=== PATIENT | female | born 1995 | race Two or more races ===

== ENCOUNTER 2016-08-13 12:53 | Emergency (ER) | payer MEDICAID ==
[2016-08-13] MEDS ORDERED: NS 1,000 ML IV ONE ×2 (14:10→15:24)
[2016-08-13 14:27] LABS: HEMATOCRIT 37.1 % (38.0-47.0); HEMOGLOBIN 13.4 g/dL (12.6-16.3); MEAN CELL HEMOGLOBIN 31.5 pg (27.9-34.1); MEAN CELL HEMOGLOBIN CONCENTR. 36.1 g/dL (32.4-36.7); MEAN CELL VOLUME 87.1 fL (81.5-99.8); RED BLOOD CELL COUNT 4.26 10^6/uL (4.18-5.33); RED CELL DISTRIBUTION WIDTH 11.7 % (11.5-15.2)
[2016-08-13 14:40] LABS: COLOR YELLOW; LEUKOCYTE ESTERASE,URINE 1+ (NEGATIVE); NITRITE,URINE POSITIVE (NEGATIVE)
[2016-08-13 14:59] LABS: RBC,URINE 25-50 /hpf (0-3); WBC,URINE >182 /hpf (0-3)
[2016-08-13 15:00] LABS: BACTERIA TRACE /hpf (NONE SEEN)
[2016-08-13 15:02] LABS: ALANINE AMINOTRANSFERASE 30 IU/L (9-52); ALBUMIN 3.4 g/dL (3.5-5.0); ALKALINE PHOSPHATASE 73 IU/L (38-126); ANION GAP 15 mEq/L (8-16); ASPARTATE AMINOTRANSFERASE 17 IU/L (14-46); BILIRUBIN,TOTAL 0.5 mg/dL (0.1-1.4); CALCIUM 8.5 mg/dL (8.5-10.4); CARBON DIOXIDE 24 mEq/l (22-31); CHLORIDE 99 mEq/L (97-110); CREATININE 0.6 mg/dL (0.6-1.0); GLOMERULAR FILTRATION RATE > 60; GLUCOSE 105 mg/dL (70-100); POTASSIUM 3.7 mEq/L (3.5-5.2); SODIUM 138 mEq/L (134-144); TOTAL PROTEIN 6.8 g/dL (6.3-8.2)
[2016-08-13] MEDS ORDERED: ACETAMINOPHEN 325 MG TAB PO ONE (15:03)
[2016-08-13] MEDS ORDERED: KETOROLAC 15 MG/1 ML SDV IVP ONE (15:03)
[2016-08-13 15:08] VITALS: O2SAT 95
--- NOTE | 2016-08-13 15:51 | UCPHY ---
H & P Patient Type: Established Chief Complaint Nursing Narrative: RLQ ABD PAIN SINCE LAST SATURDAY, NAUSEA, DENIES URINARY S/SX. FEVER HIGH OF 100F Time Seen by Provider: 08/13/16 14:11 HPI/ROS: This patient reports back pain that started 6 days ago in the right flank. It gradually started radiating to her belly. 4 days prior to arrival she developed associated fevers. She has never had these symptoms before but came in today due to increasing flank pain-7/10 intensity. She also developed some nausea today. She notes no exacerbating or alleviating factors. She did not try any medications at home. ROS: Fatigue in addition to the fever. No other constitutional symptoms. HEENT: No recent URI complaints. Pulmonary: No shortness of breath or cough. She does notice with a deep breath she has slightly increased flank pain. Cardiovascular: No complaints GI: She reports some suprapubic discomfort of moderate intensity with her symptoms. : She did notice dysuria. No urgency noted. No vaginal discharge. Last menstrual period was normal timing 1 month ago. Integumentary: No rash. 10 point ROS is otherwise negative. Source: Patient Exam Limitations: No limitations - Personal History LMP (Females 10-55): Over 28 Days Ago Tetanus Vaccine Date: < 10 years - Medical/Surgical History Hx Asthma: No Hx Chronic Respiratory Disease: No Hx Diabetes: No Hx Cardiac Disease: No Hx Renal Disease: No Hx Cirrhosis: No Hx Alcoholism: No Hx HIV/AIDS: No Hx Splenectomy or Spleen Trauma: No Other PMH: med hx-anxiety. surg-none - Family History Significant Family History: No pertinent family hx - Social History Smoking Status: Never smoked Alcohol Use: None Drug Use: None - Physical Exam Exam: Vitals notable for fever and tachycardia General Appearance: Alert, no distress. Eyes: Pupils equal and round no pallor or injection. ENT, Mouth: Mucous membranes moist. Respiratory: There are no retractions, lungs are clear to auscultation. Cardiovascular: Tachycardic Gastrointestinal: Normoactive bowel sounds with suprapubic tenderness. She also has minimal right lower quadrant tenderness but this is less than a suprapubic tenderness. No guarding or rebound. Rovsing's is negative. Back: Positive right CVA tenderness that reproduces her symptoms. Neurological: Alert with no deficits. Skin: Warm and dry, no rashes. Musculoskeletal: Neck is supple nontender. Extremities are symmetrical, full range of motion. Psychiatric: Mood and affect normal DIFFERENTIAL DIAGNOSIS: After history and physical exam differential diagnosis was considered for pyelonephritis, perinephric abscess, appendicitis, viral syndrome with back strain and cystitis Constitutional: Initial Vital Signs Temperature (C) 39.4 C H 08/13/16 13:45 Heart Rate 123 H 08/13/16 13:45 Respiratory Rate 18 08/13/16 13:45 Blood Pressure 122/77 H 08/13/16 13:45 O2 Sat (%) 95 08/13/16 13:45 O2 Delivery Mode Room Air Allergies/Adverse Reactions: No Known Allergies Allergy (Verified 08/13/16 14:09) Home Medications: Medication Instructions Recorded Bcp 08/13/16 Cephalexin [Keflex (*)] 500 mg PO QID #28 cap 08/13/16 Ondansetron Odt [Zofran Odt] 4 - 8 mg PO Q4PRN PRN #4 tab 08/13/16 Medical Decision Making ED Course/Re-evaluation: IV normal saline bolus Toradol and Tylenol with defervesced since to a febrile state. Tachycardia resolved Patient felt some improvement in terms of reduction of pain. Counseled regarding pyelonephritis. We ruled out . Her belly exam is benign at this time and I think that her suprapubic tenderness is attributable to cystitis associated with pyelonephritis. I counseled regarding this. She understands the need to go to the emergency department return here if she has any worsening of her symptoms despite the treatment plan. - Data Points Laboratory Results: Laboratory Results 08/13/16 14:13 08/13/16 14:05 08/13/16 08/13/16 08/13/16 14:13 14:05 14:05 WBC 11.63 10^3/uL H 10^3/uL (3.80-9.50) RBC 4.26 10^6/uL 10^6/uL (4.18-5.33) Hgb 13.4 g/dL g/dL (12.6-16.3) Hct 37.1 % L % (38.0-47.0) MCV 87.1 fL fL (81.5-99.8) MCH 31.5 pg pg (27.9-34.1) MCHC 36.1 g/dL g/dL (32.4-36.7) RDW 11.7 % % (11.5-15.2) Plt Count 209 10^3/uL 10^3/uL (150-400) Sodium Potassium Chloride Carbon Dioxide Anion Gap BUN Creatinine Estimated GFR Glucose Calcium Total Bilirubin AST ALT Alkaline Phosphatase Total Protein Albumin Beta HCG, Qual NEGATIVE Urine Color YELLOW Urine Appearance CLOUDY Urine pH 6.0 (5.0-7.5) Ur Specific [place] 1.010 (1.002-1.030) Urine Protein 1+ H (NEGATIVE) Urine Ketones NEGATIVE (NEGATIVE) Urine Blood 2+ H (NEGATIVE) Urine Nitrate POSITIVE H (NEGATIVE) Urine Bilirubin NEGATIVE (NEGATIVE) Urine Urobilinogen 0.2 EU EU (0.2-1.0) Ur Leukocyte Esterase 1+ H (NEGATIVE) Urine RBC 25-50 /hpf H /hpf (0-3) Urine WBC >182 /hpf H /hpf (0-3) Ur Epithelial Cells TRACE /lpf /lpf (NONE-1+) Urine Bacteria TRACE /hpf H /hpf (NONE SEEN) Ur Culture Indicated? INDICATED H (NI) Urine Glucose NEGATIVE (NEGATIVE) 08/13/16 14:05 WBC RBC Hgb Hct MCV MCH MCHC RDW Plt Count Sodium 138 mEq/L mEq/L (134-144) Potassium 3.7 mEq/L mEq/L (3.5-5.2) Chloride 99 mEq/L mEq/L (97-110) Carbon Dioxide 24 mEq/l mEq/l (22-31) Anion Gap 15 mEq/L mEq/L (8-16) BUN 9 mg/dL mg/dL (7-23) Creatinine 0.6 mg/dL mg/dL (0.6-1.0) Estimated GFR > 60 Glucose 105 mg/dL H mg/dL (70-100) Calcium 8.5 mg/dL mg/dL (8.5-10.4) Total Bilirubin 0.5 mg/dL mg/dL (0.1-1.4) AST 17 IU/L IU/L (14-46) ALT 30 IU/L IU/L (9-52) Alkaline Phosphatase 73 IU/L IU/L (38-126) Total Protein 6.8 g/dL g/dL (6.3-8.2) Albumin 3.4 g/dL L g/dL (3.5-5.0) Beta HCG, Qual Urine Color Urine Appearance Urine pH Ur Specific [place] Urine Protein Urine Ketones Urine Blood Urine Nitrate Urine Bilirubin Urine Urobilinogen Ur Leukocyte Esterase Urine RBC Urine WBC Ur Epithelial Cells Urine Bacteria Ur Culture Indicated? Urine Glucose Medications Given: Discontinued Medications Acetaminophen (Tylenol) 975 mg PO EDNOW ONE Stop: 08/13/16 15:04 Last Admin: 08/13/16 15:28 Dose: 975 mg Sodium Chloride (Ns) 1,000 mls @ 0 mls/hr IV ONCE ONE PRN Reason: Wide Open Stop: 08/13/16 14:11 Last Admin: 08/13/16 14:21 Dose: 1,000 mls Ceftriaxone Sodium 1 gm/ (Sodium Chloride) 100 mls @ 200 mls/hr IV EDNOW ONE PRN Reason: Protocol Stop: 08/13/16 15:37 Last Admin: 08/13/16 15:27 Dose: 100 mls Ketorolac Tromethamine (Toradol) 15 mg IVP EDNOW ONE Stop: 08/13/16 15:04 Last Admin: 08/13/16 15:25 Dose: 15 mg Departure - Departure Disposition: Home, Routine, Self-Care Clinical Impression: Pyelonephritis Condition: Good Instructions: Urinary Tract Infection in Women (ED) Additional Instructions: Diagnosis: Pyelonephritis Plan: Drink plenty fluids Keflex antibiotic -start this tomorrow is received IV antibiotic today. [id number] mg per 6 hours if needed for pain Tylenol in addition if needed for pain. Zofran if needed for nausea or vomiting. Return here to the emergency department if he has any significant worsening of her symptoms with the treatment plan Referrals: NONE *PRIMARY CARE P,. [Primary Care Provider] - As per Instructions - PQRS PQRS Measurement: NA
[2016-08-13 16:08] VITALS: RESP 16; TEMP 99
[2016-08-13 16:31] VITALS: BP 122/75; PULSE 100
== END 2016-08-13 16:25 | disposition home or self-care (01) ==
LOC: CED 12:53
DX: N12 Tubulo-interstitial nephritis, not specified as acute or chronic (principal)
CPT/HCPCS: 80053-PO; 81003-PO; 81015-PO; 84703-PO; 85027-PO; 96361-PO; 96365-PO; 96375-PO; 99215-PO; G0463-PO; J0696; J1885

== ENCOUNTER 2018-06-08 12:59 | Emergency (ER) | payer MEDICAID ==
[2018-06-08] MEDS ORDERED: ACETAMINOPHEN 325 MG TAB PO ONE (13:13)
[2018-06-08] MEDS ORDERED: IBUPROFEN 600 MG TAB PO ONE (13:13)
--- NOTE | 2018-06-08 13:29 | EDPHY ---
H & P Stated Complaint: fever, cough and congestion started yesterday Time Seen by Provider: 06/08/18 13:07 HPI/ROS: CHIEF COMPLAINT: Fever, cough, sore throat HISTORY OF PRESENT ILLNESS: This is a generally healthy healthy 23-year-old female who presents with fever, sore throat, some upper chest discomfort and cough. This all began yesterday. She took ibuprofen yesterday afternoon, nothing since. Her appetite is diminished but she has been able to drink liquids. She has mild headache and myalgias. She has not had a flu vaccination. REVIEW OF SYSTEMS: A ten system review of systems was performed and is negative with the exception of the items mentioned in the HPI. Past medical history: Negative Past surgical history: Negative Social history: She works in an medical writer's office. She does not use tobacco products. General Appearance: Alert. Vital signs reviewed. Heart rate 139, temperature 39.2 degrees at triage. Eyes: Pupils equal and round, no conjunctival injection, no discharge. Anicteric. ENT, Mouth: Mucous membranes are moist, mild oropharyngeal erythema without exudates or edema. Neck: No lymphadenopathy, supple. No meningeal signs. Respiratory: Lungs are clear to auscultation; no wheezes, rales, or rhonchi. Cardiovascular: Tachycardic no murmur, rub, or gallop. Gastrointestinal: Abdomen is soft and nontender, no masses or organomegaly, bowel sounds normal. Skin: Warm and dry, no rashes on exposed skin, normal color. Back: Nontender to palpation over the thoracolumbar spine. No CVAT. Extremities: No lower extremity edema, no calf tenderness or swelling. Neurological: Alert and oriented. Moving all four extremities easily and equally. Psychiatric: Normal affect. - Personal History LMP (Females 10-55): Now Tetanus Vaccine Date: < 10 years - Medical/Surgical History Hx Asthma: No Hx Chronic Respiratory Disease: No Hx Diabetes: No Hx Cardiac Disease: No Hx Renal Disease: No Hx Cirrhosis: No Hx Alcoholism: No Hx HIV/AIDS: No Hx Splenectomy or Spleen Trauma: No Other PMH: med hx-anxiety. surg-none - Social History Smoking Status: Never smoked Constitutional: Initial Vital Signs Temperature (C) 39.2 C H 06/08/18 13:06 Heart Rate 139 H 06/08/18 13:06 Respiratory Rate 18 06/08/18 13:06 Blood Pressure 129/88 H 06/08/18 13:06 O2 Sat (%) 94 06/08/18 13:06 O2 Delivery Mode Room Air Allergies/Adverse Reactions: No Known Allergies Allergy (Verified 06/08/18 13:06) Home Medications: Medication Instructions Recorded Bcp 08/13/16 Benzonatate [Tessalon Pearles (RX)] 100 mg PO TID #15 cap 06/08/18 Medical Decision Making ED Course/Re-evaluation: Healthy 23-year-old with signs and symptoms of influenza. Lungs are clear and I do not suspect pneumonia at this time. She is able to orally hydrate. She was given Tylenol and ibuprofen in the emergency department. Influenza test positive for influenza A. Differential Diagnosis: Fever in adults including but not limited to pneumonia, urinary tract infection , viral syndrome, and influenza. - Data Points Medications Given: Discontinued Medications Acetaminophen (Tylenol) 650 mg PO EDNOW ONE Stop: 06/08/18 13:14 Last Admin: 06/08/18 13:16 Dose: 650 mg Ibuprofen (Motrin) 600 mg PO EDNOW ONE Stop: 06/08/18 13:14 Last Admin: 06/08/18 13:16 Dose: 600 mg Departure - Departure Disposition: Home, Routine, Self-Care Clinical Impression: Influenza A Condition: Good Instructions: Influenza (ED) Additional Instructions: You must be without fever for 24 hr before returning to work. Adult Pain & Fever Control: We recommend Acetaminophen (Tylenol) and Ibuprofen (Motrin,Advil) for pain and fever control. When fever is high or pain severe, both drugs can be used at the same time, but at different intervals. Please note the time differences. Your dose is: Acetaminophen [650]mg every 4 to 6 hours Ibuprofen [400]mg every [6] hours with food OR Note: do not take Acetaminophen with Hydrocodone (Vicodin, Lortab) or Oycodone (Percocet). These medications also contain Acetaminophen. No more than 3000mg of Acetaminophen should be taken in 24 hours (for an adult). Referrals: [facility] [Outside] - As per Instructions Stand Alone Forms: Work Excuse Prescriptions: Benzonatate [Tessalon Pearles (RX)] 100 mg PO TID #15 cap
[2018-06-08 15:28] VITALS: BP 121/73
== END 2018-06-08 13:52 | disposition home or self-care (01) ==
LOC: CED 12:59
DX: J10.1 Influenza due to other identified influenza virus with other respiratory manifestations (principal)
CPT/HCPCS: 99283-ER